=== PATIENT | male | born 1985 | race Two or more races ===

== ENCOUNTER 2019-11-25 08:45 | Emergency (ER) | payer SELFPAY ==
[~2019-11-25] VITALS: Ht 182.9 cm; Wt 130.0 kg
[2019-11-25 12:22] VITALS: BP 141/86
== END 2019-11-25 12:29 | disposition home or self-care (01) ==
LOC: ER 08:45
DX: Z03.818 Encounter for observation for suspected exposure to other biological agents ruled out (principal); B34.9 Viral infection, unspecified
CPT/HCPCS: 99281; 99283